=== PATIENT | female | born 1995 | race Caucasian/White ===

== ENCOUNTER 2016-12-06 05:37 | Emergency (ER) | payer OTHER ==
[~2016-12-06] VITALS: Ht 160 cm; Wt 88.4 kg
[~2016-12-06 05:37] MED LIST: BACTRIM,SEPT1 TABLET PO; birth control PO
[2016-12-06] MEDS ORDERED: ZITHROMAX Z-PA250 MG PO (06:19)
[2016-12-06] MEDS ORDERED: VENTOLIN HFA18 GM IH (06:19)
[2016-12-06] MEDS ORDERED: ROBITUSSIN AC,T10 ML PO (06:19)
[2016-12-06 06:27] VITALS: BP 133/89
== END 2016-12-06 06:25 | disposition home or self-care (01) ==
LOC: EME 05:37
DX: J06.9 Acute upper respiratory infection, unspecified (principal); Z79.3 Long term (current) use of hormonal contraceptives
CPT/HCPCS: 71020; 99281; 99283

== ENCOUNTER 2017-10-11 10:27 | Emergency (ER) | payer OTHER ==
[~2017-10-11] VITALS: Ht 160 cm; Wt 102.2 kg
[~2017-10-11 10:27] MED LIST changes: +ROBITUSSIN AC,T10 ML PO; +VENTOLIN HFA18 GM IH; +ZITHROMAX Z-PA250 MG PO
[2017-10-11] MEDS ORDERED: PROVENTIL HFA6.7 GM IH (12:23)
[2017-10-11 13:33] VITALS: BP 116/79
== END 2017-10-11 13:34 | disposition home or self-care (01) ==
LOC: EME 10:27
PROVIDERS: Emergency Medicine
DX: J20.9 Acute bronchitis, unspecified (principal)
CPT/HCPCS: 71046; 85379; 94640; 99281; 99284; J1100